=== PATIENT | male | born 1960 | race Caucasian/White ===

== ENCOUNTER 2024-03-05 07:18 | Outpatient (CLI) | payer BC ==
[2024-03-05] MEDS ORDERED: Magnevist 469MG/ML 20 ML VIAL ONE (13:20)
== END 2024-03-05 07:19 | disposition home or self-care (01) ==
LOC: MRI 07:18
PROVIDERS: ATTEND Otolaryngology
DX: H91.90 Unspecified hearing loss, unspecified ear (principal)
CPT/HCPCS: 70553; 82565; A9579